=== PATIENT | female | born 1960 | race Caucasian/White ===

== ENCOUNTER 2020-01-14 15:16 | Emergency (ER) | payer OTHER ==
[~2020-01-14] VITALS: Ht 167.6 cm; Wt 127.0 kg
[2020-01-14 17:17] LABS: ABSOLUTE NEUTROPHILS 12.5 thou/uL (1.4-8.2); BASOPHILS 0.1 % (0.0-2.0); HEMOGLOBIN 14.3 gm/dL (12.0-15.0); MCH 26.1 pg (26.0-34.0); MCHC 31.8 g/dL (28.0-37.0); MCV 82.1 fL (80.0-100.0); MONOCYTES 3.8 % (1.0-8.0); PLATELET COUNT 252 thou/uL (150-400); POLYS 94.1 % (36.0-66.0); RBC 5.48 mil/uL (4.20-5.00); RDW 15.6 % (10.5-14.5); WBC 13.3 thou/uL (4.0-11.0)
[2020-01-14 17:23] LABS: CALCIUM 8.8 mg/dL (8.5-10.1); CREATININE 1.6 mg/dL (0.6-1.0); POTASSIUM 3.4 mmol/L (3.5-5.1)
[2020-01-14 17:29] LABS: DIRECT BILIRUBIN 2.7 mg/dL (<0.1-0.2)
[2020-01-14 18:05] LABS: URINE BILIRUBIN NEGATIVE (Negative); URINE BLOOD 1+ (Negative); URINE CLARITY CLEAR; URINE COLOR YELLOW; URINE GLUCOSE-RANDOM* NEGATIVE (Negative); URINE KETONES NEGATIVE (Negative); URINE LEUKOCYTES-REFLEX NEGATIVE (Negative); URINE NITRITE-REFLEX NEGATIVE (Negative); URINE PROTEIN (DIPSTICK) NEGATIVE (Negative)
[2020-01-14 18:14] LABS: AMP/METHAMP POSITIVE (Negative); BARBITURATES Negative (Negative); BENZODIAZEPINES Negative (Negative); COCAINE Negative (Negative); METHADONE Negative (Negative); OPIATES Negative (Negative); PCP Negative (Negative)
[2020-01-14 18:19] LABS: BACTERIA-REFLEX 1-9 Few /HPF (None Seen); CASTS None Seen /LPF (None Seen); CRYSTALS None Seen /LPF (None Seen); SQUAMOUS 0-3 Few /LPF (0-3); URINE RBC 3-10 Few /HPF (0-2); URINE WBC-REFLEX 0-5 Rare /HPF (0-5)
[2020-01-15 00:48] LABS: BE(vivo) -3.7 mmol/L (-2 to +3); HCO3 19.2 mmol/L (22.0-26.0); PCO2 28.8 mmHg (35.0-45.0); PO2 88.3 mmHg (80.0-100.0); pH 7.441 (7.360-7.450); sO2 97.1 % (92.0-98.0)
[2020-01-15 01:05] VITALS: BP 105/69
--- NOTE | 2020-01-15 08:54 | EKG ---
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: no : 1960 Requested By: Kaitlyn Chan Order Number: [id number] MD: Catrachito Collazo Measurements Intervals [place] Rate: 103 P: 17 AL: 131 QRS: -21 QRSD: 74 T: 57 QT: 384 QTc: 503 Interpretive Statements Sinus tachycardia Nonspecific ST segment abnormality Abnormal R-wave progression, early transition Borderline prolonged QT interval No previous ECG available for comparison Electronically Signed On 01-15-2020 8:53:48 CDT by Catrachito Collazo [email or web address] <ELECTRONICALLY SIGNED> By: Catrachito Collazo MD, FACC 01/15/20 0853 1715 1715 Catrachito Collazo MD, [facility] /EPI
== END 2020-01-15 01:14 | disposition still patient (30) ==
LOC: EDBD 15:16 → ER 15:16
PROVIDERS: Emergency Medicine
DX: R41.82 Altered mental status, unspecified (principal); F15.10 Other stimulant abuse, uncomplicated; E86.0 Dehydration; E87.2 Acidosis; R74.01 Elevation of levels of liver transaminase levels; Z88.0 Allergy status to penicillin; Z88.6 Allergy status to analgesic agent